=== PATIENT | female | born 1970 | race Caucasian/White ===

== ENCOUNTER → 2016-05-24 | Outpatient (CLI) | payer BC ==
[~2016-05-24] MED LIST: ALPR0.5T PO; AMOX1TAB12 PO; ASCO500T6 PO; ATEN25TA PO; CARI350T27 PO; CLCX200C PO; DOCU-143 PO; HUMERA; HYDR-3729 PO; IBUP-1773 PO; METR500T21 PO; OXYC-202 PO; OXYC-32 PO; POTA20TA8 PO; PRM25T PO; RLS; ROPI0.5T PO; SIME80TA16 PO; TMZP15C PO; VALA1000 PO; [UNRECOGNIZED DRUG - OTHER]
--- OUTSIDE RECORDS SUMMARY | 2016-05-24 13:48 | XMS REPORT | Continuity of Care Document ---
Author Author [facility] Organization [facility] Address Unknown Phone Unavailable Care Team Providers Care Forestry Scientist Name Role Phone Chapin Florentino PCP Unavailable Source Comments Some departments are not documenting in the electronic medical record. If you do not see the information that you expected, contact Release of Information in the Health Information Management department at [phone] for further assistance in locating additional records.[facility] Active Allergies and Adverse Reactions Allergen Noted Date Severity Reactions Comments Codeine 11/10/2010 NAUSEA AND VOMITING Current Medications Prescription Sig. Disp. Refills Start End Date Status Date celecoxib (CELEBREX) 200 Take 1 Cap by mouth twice 60 Cap 3 07/21/19 Active mg PO capsule daily. 11 methotrexate 2.5 mg PO Take 8 Tabs by mouth 8 Tab 3 10/31/19 Active tablet every 7 days. 11 FOLIC ACID PO Take 1 mg by mouth daily. Active FLUoxetine(+) (PROZAC) 10 Take 60 mg by mouth Active mg PO tablet daily. cyclobenzaprine Take 10 mg by mouth at Active (FLEXERIL) 10 mg PO bedtime daily. tablet temazepam (RESTORIL) 7.5 Take 7.5 mg by mouth as Active mg PO capsule Needed. oxyCODONE/acetaminophen Take 2 Tabs by mouth Active (PERCOCET; ENDOCET; three times daily. Max 12 ROXICET) 5/325 mg PO tabs/day tablet cyanocobalamin(+) Take 100 mcg by mouth Active (VITAMIN B-12) 100 mcg PO daily. tablet ZOLPIDEM TARTRATE (AMBIEN Take 10 mg by mouth. Active PO) 1-2x/month Active Problems Not on file Social History Tobacco Use Types Packs/Day Years Used Date Never Assessed Last Filed Vital Signs Vital Sign Reading Time Taken Blood Pressure 119/87 11/02/2009 12:00 AM CDT Pulse 92 11/02/2009 12:00 AM CDT Temperature 36.2 C (97.2 F) 11/02/2009 12:00 AM CDT Respiratory Rate 20 11/02/2009 12:00 AM CDT Height 1.676 m (5' 6") 11/02/2009 12:00 AM CDT Weight 78.019 kg (172 lb) 11/02/2009 12:00 AM CDT Body Mass Index 27.77 11/02/2009 12:00 AM CDT Oxygen Saturation - - Plan of Care Health Maintenance Due Date Last Done Comments Physical (Comprehensive) 10/03/1979 Exam Pertussis Vaccine 10/03/1983 Tetanus Vaccine 1989 Cervical Cancer Screening 1993 Influenza Vaccine 12/01/2015 Results from Last 3 Months Not on file
--- NOTE | 2016-05-24 15:58 | Diagnostic Imaging Report ---
EXAM: Abdomen, flat and upright. INDICATION: Abdominal pain. Supine and erect views were obtained. FINDINGS: There is some gas in both the large and small bowel in a nonspecific fashion. The dilated gas-filled segments of small bowel seen on the CT abdomen/pelvis exam of 12/27/15 have resolved. There is no sign of a bowel obstruction. There does appear to be a moderate amount of fecal material throughout the ascending colon. There is no mass or organomegaly identified. There is no sign of a pneumoperitoneum. The osseous structures are intact. IMPRESSION: 1. The bowel gas pattern is nonspecific. There is no acute abnormality identified. 2. There is a least a moderate amount of fecal material in the ascending colon. Dictated by: Dictated on workstation # [id number]
== END ==
LOC: RAD 13:44
PROVIDERS: ATTEND Nurse Practitioner
DX: R10.13 Epigastric pain (principal); R10.12 Left upper quadrant pain; R11.0 Nausea
CPT/HCPCS: 74020

== ENCOUNTER → 2017-03-26 | Outpatient (CLI) | payer BC ==
--- NOTE | 2017-03-26 13:21 | Diagnostic Imaging Report ---
Bilateral screening mammogram 2D views with tomosynthesis. The current study was also evaluated with a Computer Aided Detection (CAD) system. INDICATION: Screening. No current complaints stated on the questionnaire. COMPARISON: 02/29/16. FINDINGS: The breasts are composed of heterogeneously dense parenchyma which may decrease mammographic sensitivity. There is no mass, architectural distortion or suspicious cluster of calcification. Allowing for technique and positional differences, no suspicious change is seen. IMPRESSION: Dense breasts with no definite change. ACR BI-RADS Category 2: Benign findings. Result letter will be mailed to the patient. Note: At least 10% of breast cancer is not imaged by mammography. Dictated by: Dictated on workstation # [id number]
== END ==
LOC: RAD 09:22
PROVIDERS: ATTEND Nurse Practitioner
DX: Z12.31 Encounter for screening mammogram for malignant neoplasm of breast (principal)
CPT/HCPCS: 77067

== ENCOUNTER → 2017-10-25 | Outpatient (CLI) | payer BC ==
--- NOTE | 2017-10-25 16:49 | Diagnostic Imaging Report ---
Indication: Nodule on the inside of the left calf. Comparison: None. Findings: Targeted ultrasound evaluation at the area of focal patient concern at the level of the medial left calf was performed. There is no sonographically demonstrated mass or fluid collection. Impression: No sonographically demonstrated mass or fluid collection at the area of focal concern labeled at the level of the medial left calf. If there is a truly clinically palpable abnormality, dedicated targeted small field of view MRI with and without contrast would be recommended for further assessment. Dictated by: Dictated on workstation # [id number]
== END ==
LOC: RAD 13:22
PROVIDERS: ATTEND Family Medicine
DX: R22.42 Localized swelling, mass and lump, left lower limb (principal)
CPT/HCPCS: 76881

== ENCOUNTER → 2017-11-08 | Outpatient (CLI) | payer BC ==
--- NOTE | 2017-11-08 10:42 | Diagnostic Imaging Report ---
INDICATION: Palpable knot on the posterior part of the left lower extremity. TIME OF EXAMINATION: 10:10 a.m. FINDINGS: A BB marker was placed in area of palpable abnormality in the posterior aspect of the left lower extremity. No underlying abnormality is seen. No definite soft tissue mass is identified. Tibia and fibula are intact. Alignment at the knee and ankle is normal. No fractures are seen. IMPRESSION: No abnormality is identified. Dictated by: Dictated on workstation # [id number]
== END ==
LOC: RAD 08:58
PROVIDERS: ATTEND Family Medicine
DX: D17.24 Benign lipomatous neoplasm of skin and subcutaneous tissue of left leg (principal)
CPT/HCPCS: 73590

== ENCOUNTER 2017-12-11 15:09 | Outpatient (CLI) | payer BC ==
[~2017-12-11] VITALS: Ht 167.6 cm; Wt 88.5 kg
[~2017-12-11 15:09] MED LIST changes: -OXYC-202 PO; +OXYC1TAB12 PO
[2017-12-11] MEDS ORDERED: METO-387 PO (15:19)
[2017-12-11] MEDS ORDERED: LORC20TA PO (15:19)
[2017-12-11] MEDS ORDERED: HYDR-3820 PO (15:19)
[2017-12-11] MEDS ORDERED: AMIT25TA9 PO (15:19)
[2017-12-11] MEDS ORDERED: TOPI50CA6 PO (15:19)
[2017-12-11] MEDS ORDERED: TRAZ-190 PO (15:22)
== END 2017-12-11 15:20 | disposition home or self-care (01) ==
LOC: PREOP 15:09
PROVIDERS: ATTEND Surgery
DX: Z01.818 Encounter for other preprocedural examination (principal)

== ENCOUNTER 2017-12-16 08:05 | Day surgery (SDC) | payer BC ==
[~2017-12-16] VITALS: Ht 167.6 cm; Wt 88.5 kg
[~2017-12-16 08:05] MED LIST changes: +AMIT25TA9 PO; +HYDR-3820 PO; +LORC20TA PO; +METO-387 PO; +TOPI50CA6 PO; +TRAZ-190 PO
[2017-12-16] MEDS ORDERED: LACTATED RINGERS 1,000 ML IV STA (08:22)
[2017-12-16] MEDS ORDERED: HURRICAINE EXT TUBE (BENZOCAINE) XX ONE (08:30)
[2017-12-16] MEDS ORDERED: LACTATED RINGERS 1,000 ML IV ONE (08:35)
[2017-12-16 08:55] VITALS: BP 116/81
[2017-12-16] MEDS ORDERED: PROPOFOL INJECTION 50 ML IV ONE (09:40)
[2017-12-16] MEDS ORDERED: MIDAZOLAM 2 MG/2 ML (VERSED) VIAL ONE ×2 (09:41)
--- NOTE | 2017-12-16 10:23 | Endo Procedure Record ---
Endo Procedure Report Date of Procedure Last Colonoscopy: No Dec 16, 2017 Surgeon (s) JESUS HOPPER MD Post Procedure/Op Diagnosis EGD: Grade 3 esophagitis. Severe distal gastritis. duodenitis Colonoscopy: Poor bowel prep. Normal mucosa Procedure Performed EGD with antral biopsy. Colonoscopy to cecum Description of Procedure Anesthesia Type: Conscious Sedation Specimen(s) collected/removed antral mucosa for H. pylori Description of the Procedure Indication for the procedures: This 32 came in for an upper endoscopy to evaluate epigastric pain and colonoscopy to investigate change in her bowel habits. Informed consent was obtained after reviewing the procedures in detail. Description of the procedures: She was placed in left lateral decubitus position and her vital signs were monitored. Conscious sedation was achieved using propofol infusion by our REACTOR OPERATOR. EGD/antral biopsy: The flexible gastroscope was then introduced down the esophagus, past the stomach, into the proximal duodenum. Findings: Esophagus: Quite severe(grade III) esophagitis without any stricture Stomach: Severe distal gastritis without ulceration. Biopsy for H. pylori was obtained. Duodenum: Severe duodenitis. She tolerated the procedure well and was turned around in preparation for colonoscopy. Impression: Epigastric pain. Grade 3 esophagitis, severe gastritis and duodenitis. Vital status pending. Colonoscopy: Digital rectal examination unremarkable. The colonoscope was then introduced into the rectum and advanced to the cecum Quality of bowel preparation was rather suboptimal. The scope was withdrawn slowly and the mucosa examined in a systematic fashion, suctioning the fecal material. There was no abnormality She tolerated the procedure well and was taken back to the nursing area in a stable condition. Impression: Change in bowel habits. Normal colonoscopy. Copy Copies To 1: ISABEL LIMON XAVIER M MD Dec 16, 2017 10:23
--- NOTE | 2017-12-16 10:25 | Discharge Inst-Simple/Standard ---
Discharge Inst-Standard Discharge Medications New, Converted or Re-Newed RX: Other Patient Instructions/Follow Up Plan of Care/Instructions/FU: my office will schedule a radiology study and contact her Activity as Tolerated: Yes Discharge Diet: No Restrictions JESUS HOPPER MD Dec 16, 2017 10:25
[2017-12-16 10:50] VITALS: BP 108/71
[2017-12-16 11:20] VITALS: BP 114/84
[2017-12-16 11:42] VITALS: BP 114/84
--- NOTE | 2017-12-16 14:07 | Anesthesia-General Post-Op ---
MAC Patient Condition Mental Status/LOC: Same as Preop Cardiovascular: Satisfactory Nausea/Vomiting: Absent Respiratory: Satisfactory Pain: Controlled Complications: Absent Post Op Complications Complications None Follow Up Care/Instructions Patient Instructions None needed. Anesthesiology Discharge Order Discharge Order Patient is doing well, no complaints, stable vital signs, no apparent adverse anesthesia problems. No complications reported per nursing. SHAUN TARIQ CRNA Dec 16, 2017 14:07
== END 2017-12-16 11:42 | disposition home or self-care (01) ==
LOC: ENDO 08:05
PROVIDERS: ATTEND Surgery
DX: K20.9 Esophagitis, unspecified (principal); K29.70 Gastritis, unspecified, without bleeding; K29.80 Duodenitis without bleeding; R19.4 Change in bowel habit; M45.9 Ankylosing spondylitis of unspecified sites in spine; I10 Essential (primary) hypertension; F32.9 Major depressive disorder, single episode, unspecified; F41.9 Anxiety disorder, unspecified; K21.9 Gastro-esophageal reflux disease without esophagitis; Z79.899 Other long term (current) drug therapy

== ENCOUNTER → 2018-01-06 | Outpatient (CLI) | payer BC ==
--- NOTE | 2018-01-10 12:59 | Diagnostic Imaging Report ---
Motility study with markers. Indication: Chronic constipation. There are no prior studies available for comparison. Six images were obtained from the initial administration of the Sitz markers motility coils on 01/06/2018 until today's exam performed at 10:07 AM. There are multiple Sitz markers overlying the descending colon on the final image. There also appears to a fair amount of fecal material throughout the colon on all of the images. There is no mass or organomegaly identified. The osseous structures are intact. Impression: After 4 days there are still Sitz markers overlying the descending colon. Dictated by: Dictated on workstation # [id number]
== END ==
LOC: RAD 09:09
PROVIDERS: ATTEND Surgery
DX: K59.01 Slow transit constipation (principal)
CPT/HCPCS: 74250

== ENCOUNTER → 2018-04-02 | Outpatient (CLI) | payer BC ==
[~2018-04-02] MED LIST changes: +METR-197 PO; -METR500T21 PO
--- NOTE | 2018-04-02 18:20 | Diagnostic Imaging Report ---
EXAMINATION: Digital mammogram Bilateral screening. INDICATION: Screening. COMPARISON: This study was compared to the prior exams of 03/26/2017, 02/29/2016, and 02/11/2015. At this time, there are no current complaints. The current study was also evaluated with a Computer Aided Detection (CAD) system. FINDINGS: The fibroglandular tissue in both breasts is heterogeneously dense. This does limit the sensitivity of this exam. Overall, there does not appear to have been any significant change when compared to the prior study. No primary or secondary sign of malignancy is noted. IMPRESSION: There is no radiographic evidence for malignancy. ACR BI-RADS Category 1: Negative. Result letter will be mailed to the patient. Note: At least 10% of breast cancer is not imaged by mammography. Dictated by: Dictated on workstation # [id number]
== END ==
LOC: RAD 14:45
PROVIDERS: ATTEND Family Medicine
DX: Z12.31 Encounter for screening mammogram for malignant neoplasm of breast (principal)
CPT/HCPCS: 77067

== ENCOUNTER 2020-04-01 10:20 | Outpatient (CLI) | payer BC ==
[~2020-04-01] VITALS: Ht 165.1 cm; Wt 77.1 kg
[2020-04-01 10:18] VITALS: BP 121/86
[~2020-04-01 10:20] MED LIST changes: +ACHYD1T PO; +ASCO500T17 PO; -ASCO500T6 PO; -HYDR-3820 PO; -METO-387 PO; +METR-145 PO; -METR-197 PO; +MTP25TSR PO; -TRAZ-190 PO; +TRAZ-227 PO; -VALA1000 PO; +VALA10007 PO
[2020-04-01] MEDS ORDERED: BAMLANIVIMAB 700 MG in NS 200 ML IV ONE (10:30)
[2020-04-01] MEDS ORDERED: diphenhydrAMINE 50 MG/ML INJ (BENADRYL) IV PRN (10:30)
[2020-04-01] MEDS ORDERED: EPINEPHrine INJECTION 1 MG/ML AMP IM PRN (10:30)
[2020-04-01 11:57] VITALS: BP 105/71
== END 2020-04-01 12:53 | disposition home or self-care (01) ==
LOC: INFUSION 10:20
PROVIDERS: ATTEND Family Medicine
DX: U07.1 COVID-19 (principal)

== ENCOUNTER 2020-10-26 13:00 | Outpatient (RCR) | payer BC | END 2020-11-01 | disposition home or self-care (01) | PROVIDERS: ATTEND Orthopaedic Surgery Hand Surgery | DX: M79.645 Pain in left finger(s) (principal) ==

== ENCOUNTER → 2021-01-16 | Outpatient (CLI) | payer BC ==
--- NOTE | 2021-01-16 08:59 | Diagnostic Imaging Report ---
INDICATION: Abdominal pain Ultrasound of the gallbladder and right upper quadrant performed in the routine fashion. The liver shows normal echogenicity with no focal lesion. There is patency of the portal vein with hepatopetal flow. Gallbladder is unremarkable. No stones or wall thickening. Common duct measured 6 mm. The pancreas is not well seen due to overlying gas. Visualized portions of aorta and IVC are unremarkable. Right kidney was normal 11.5 cm in length. There is no ascites. There is a clinically palpated lump in the right upper quadrant. Ultrasound in the area in question shows no definitive mass or abnormal fluid collection in this area. IMPRESSION: Unremarkable ultrasound of the gallbladder and right upper quadrant. Findings are unchanged from 11/25/2017. Dictated by: Dictated on workstation # [id number]
--- NOTE | 2021-01-16 09:14 | Diagnostic Imaging Report ---
HISTORY: Chronic back pain. COMPARISON: 12/05/2010. TECHNIQUE: Three views of the lumbar spine. FINDINGS: There are diminutive 12th ribs with transitional anatomy at the lumbosacral junction and sacralization of L5. There is mild left convex curvature of the lumbar spine centered at L2 which appears similar to the prior exam. Vertebral body heights are preserved. There are moderate degenerative changes at L3-L4 and L4-L5. There are mild degenerative changes elsewhere in the lumbar spine. There is no spondylolisthesis. No fracture is seen. Bilateral sacroiliac joints appear patent. IMPRESSION: 1. Degenerative changes in the lower lumbar spine with no acute fracture seen. 2. Transitional anatomy at the lumbosacral junction. Dictated by: Dictated on workstation # [id number]
== END ==
LOC: RAD 07:57
PROVIDERS: ATTEND Family Medicine
DX: M47.816 Spondylosis without myelopathy or radiculopathy, lumbar region (principal); R10.11 Right upper quadrant pain
CPT/HCPCS: 72100; 76705

== ENCOUNTER 2021-02-02 13:00 | Outpatient (RCR) | payer BC | END 2021-02-06 | disposition home or self-care (01) | PROVIDERS: ATTEND Orthopaedic Surgery Hand Surgery | DX: Z48.89 Encounter for other specified surgical aftercare (principal); M20.022 Boutonniere deformity of left finger(s) ==

== ENCOUNTER → 2021-02-06 | Outpatient (CLI) | payer BC ==
[~2021-02-06] MED LIST changes: +CATHETER FLUSH 10 ML SYR IV PRN
--- NOTE | 2021-02-06 11:02 | Diagnostic Imaging Report ---
INDICATION: RIGHT UPPER QUADRANT ABDOMINAL PAIN. FINDINGS: The patient was administered 5.5 mCi of Tc 99m Choletec and sequential imaging was performed over the right upper abdomen. There is progressive, homogeneous accumulation of radiotracer within the liver parenchyma. There is filling of the bile ducts and subsequent filling of the gallbladder. There is progressive clearance of activity from the liver parenchyma and accumulation of radiotracer within loops of small bowel. The patient was then administered a fatty meal, utilizing 2 cans of Ensure. The gallbladder ejection fraction was calculated to be 36.8%. (Normal values post fatty meal stimulation are 33% or greater.) IMPRESSION: 1. Hepatobiliary scan demonstrates a patent biliary tree. 2. Lower limits of normal gallbladder ejection fraction of approximately 37%. Dictated by: Dictated on workstation # [id number]
== END ==
LOC: CARD 10:00
PROVIDERS: ATTEND Family Medicine
DX: R10.11 Right upper quadrant pain (principal)
CPT/HCPCS: 78227; A9537

== ENCOUNTER 2021-02-09 13:00 | Outpatient (RCR) | payer BC ==
[~2021-02-09 13:00] MED LIST changes: -CATHETER FLUSH 10 ML SYR IV PRN; +POTA-169 PO; -POTA20TA8 PO
[2021-02-28] MEDS ORDERED: IXEK80AU SQ (11:06)
[2021-02-28] MEDS ORDERED: METH2.5T PO (11:06)
[2021-02-28] MEDS ORDERED: FLUT1AER IH (11:06)
[2021-02-28] MEDS ORDERED: POTA10CA43 PO (11:06)
[2021-02-28] MEDS ORDERED: BUSP5TAB59 PO (11:06)
[2021-02-28] MEDS ORDERED: FOLI1TAB33 PO (11:06)
[2021-02-28] MEDS ORDERED: CELE200C PO (11:06)
[2021-02-28] MEDS ORDERED: SUMATRIPTAN (11:06)
[2021-02-28] MEDS ORDERED: METO50TA7 PO (11:06)
[2021-03-02] MEDS ORDERED: OXYC1TAB16 PO (09:22)
== END 2021-03-21 12:15 | disposition home or self-care (01) ==
PROVIDERS: ATTEND Orthopaedic Surgery Hand Surgery
DX: Z42.8 Encounter for other plastic and reconstructive surgery following medical procedure or healed injury (principal); M20.022 Boutonniere deformity of left finger(s)

== ENCOUNTER 2021-02-27 05:35 | Outpatient (CLI) | payer BC ==
[~2021-02-27] VITALS: Ht 165.1 cm; Wt 87.5 kg
[2021-02-28] MEDS ORDERED: POTA10CA43 PO (11:06)
[2021-02-28] MEDS ORDERED: IXEK80AU SQ (11:06)
[2021-02-28] MEDS ORDERED: FOLI1TAB33 PO (11:06)
[2021-02-28] MEDS ORDERED: CELE200C PO (11:06)
[2021-02-28] MEDS ORDERED: SUMATRIPTAN (11:06)
[2021-02-28] MEDS ORDERED: BUSP5TAB59 PO (11:06)
[2021-02-28] MEDS ORDERED: METO50TA7 PO (11:06)
[2021-02-28] MEDS ORDERED: METH2.5T PO (11:06)
[2021-02-28] MEDS ORDERED: FLUT1AER IH (11:06)
== END 2021-02-28 11:07 | disposition home or self-care (01) ==
LOC: PREOP 05:35
PROVIDERS: ATTEND Surgery
DX: Z01.818 Encounter for other preprocedural examination (principal)

== ENCOUNTER 2021-03-02 08:07 | Day surgery (SDC) | payer BC ==
[2021-03-02] VITALS (12 sets, daily range): BP systolic 111–133; BP diastolic 70–95
[~2021-03-02] VITALS: Ht 165.1 cm; Wt 87.5 kg
[~2021-03-02 08:07] MED LIST changes: +BUSP5TAB59 PO; +CELE200C PO; +FLUT1AER IH; +FOLI1TAB33 PO; +IXEK80AU SQ; +METH2.5T PO; +METO50TA7 PO; +POTA10CA43 PO; +SUMATRIPTAN
[2021-03-02] MEDS ORDERED: LIDOCAINE/EPI 1%-1:200,000 (XYLOCAINE) 30 ML VIAL ONE (08:15)
[2021-03-02] MEDS ORDERED: ceFAZolin 2 GM IV Premixed 50 ML IV ONE (08:30)
[2021-03-02] MEDS: LACTATED RINGERS 1,000 ML IV PRN ×2 (08:48→11:11)
--- NOTE | 2021-03-02 09:19 | Progress Note-Pre Operative ---
Pre-Operative Progress Note H&P Reviewed The H&P was reviewed, patient examined and no changes noted. Date Seen by Provider: Mar 02, 2021 Time Seen by Provider: 09:15 Date H&P Reviewed: Mar 02, 2021 Time H&P Reviewed: 09:10 Pre-Operative Diagnosis: Biliary Dyskinesia GAMALIEL LEYVA APRN Mar 02, 2021 09:19
[2021-03-02] MEDS ORDERED: OXYC1TAB16 PO (09:22)
--- NOTE | 2021-03-02 09:22 | Discharge Inst-Surgical ---
D/C Lap Instructions-KIDO Reconcile Patient Problems Problems Reviewed?: Yes New, Converted, or Re-Newed RX: RX on Chart Follow Up Appt in 2 weeks Activity as tolerated No driving for 24 hours No driving while on pain medications Incentive Spirometry use every 2 hours while awake Regular Diet Symptoms to Report: Fever over 101 degree F, Nausea/Vomiting Infection Signs and Symptoms to report: Increased redness, Foul odor of wound, Increased drainage Bathing instructions: May shower Operative Area Clean/Dry; Keep incision clean/dry If any problems/questions: Contact your physician or go to Emergency Room GMAALIEL LEYVA APRN Mar 02, 2021 09:22
[2021-03-02] MEDS ORDERED: oxyCODONE/APAP 5/325MG (PERCOCET 5) TABLET PO PRN (09:30)
[2021-03-02] MEDS ORDERED: fentaNYL INJ 100 MCG/2 ML AMP IVP PRN (09:30)
[2021-03-02] MEDS ORDERED: ACETAMINOPHEN 325 MG TABLET PO PRN (09:30)
[2021-03-02] MEDS ORDERED: ONDANSETRON 4 MG/2 ML (SDV) Z0FRAN IVP PRN ×2 (09:30→12:00)
[2021-03-02] MEDS ORDERED: proPOfol 200 MG/20 ML (DIPRIVAN) VIAL IV ONE (09:40)
[2021-03-02] MEDS ORDERED: fentaNYL INJ 100 MCG/2 ML AMP ONE ×2 (09:40→11:28)
[2021-03-02] MEDS ORDERED: LIDOCAINE PF 2% 5 ML (XYLOCAINE) VIAL ONE (09:40)
[2021-03-02] MEDS ORDERED: ROCURONIUM 50 MG/5 ML (ZEMURON) VIAL IV ONE (09:40)
[2021-03-02] MEDS ORDERED: MIDAZOLAM 2 MG/2 ML (VERSED) VIAL ONE (09:40)
[2021-03-02] MEDS ORDERED: ONDANSETRON 4 MG/2 ML (SDV) Z0FRAN ONE (09:40)
[2021-03-02] MEDS ORDERED: SEVOFLURANE (ULTANE) 15 ML INHAL SOLN ONE ×2 (09:40→11:15)
[2021-03-02] MEDS ORDERED: NEOSTIGMINE 3 MG/3 ML VIAL ONE (10:51)
[2021-03-02] MEDS ORDERED: GLYCOPYRROLATE 0.2 MG/ML (ROBINUL) 2 ML VIAL ONE (10:51)
--- NOTE | 2021-03-02 11:28 | Progress Note-Post Operative ---
Post-Operative Progess Note Surgeon (s)/Strand Forming Machine Operator (s) Surgeon ATTILA NEWMAN MD Strand Forming Machine Operator: dennis portillo DIVISION CONTROLLER Pre-Operative Diagnosis Biliary Dyskinesia, sx abdominal wall lipoma 3cm Post-Operative Diagnosis same Procedure & Operative Findings Date of Procedure 03/02/21 Procedure Performed/Findings laparoscopic cholecystectomy, excision subcutaneous abd wall lipoma(3cm) Anesthesia Type get Estimated Blood Loss Estimated blood loss (mL): minimal Specimens/Packing Specimens Removed gallbladder, subcutaneous lipoma abd wall(3cm) ATTILA NEWMAN MD Mar 02, 2021 11:28
[2021-03-02] MEDS ORDERED: HYDROmorphone 2 MG/ML VIAL (DILAUDID) ONE (11:56)
--- NOTE | 2021-03-02 11:58 | Anesthesia-General Post-Op ---
General Patient Condition Mental Status/LOC: Same as Preop Cardiovascular: Satisfactory Nausea/Vomiting: Absent Respiratory: Satisfactory Pain: Controlled Complications: Absent Post Op Complications Complications None Follow Up Care/Instructions Patient Instructions None needed. Anesthesia/Patient Condition Patient Condition Patient is doing well, no complaints, stable vital signs, no apparent adverse anesthesia problems. No complications reported per nursing. ROBYN BROWN CRNA Mar 02, 2021 11:57
[2021-03-02] MEDS ORDERED: HYDROmorphone 2 MG/ML VIAL (DILAUDID) IV ONE (12:00)
[2021-03-02] MEDS ORDERED: fentaNYL INJ 100 MCG/2 ML AMP IVP ONE (12:00)
--- NOTE | 2021-03-02 14:16 | OPERATIVE REPORT ---
DATE OF SERVICE: 03/02/2021 ATTENDING PRIMARY CARE PHYSICIAN: Claritza Mojica DO PREOPERATIVE DIAGNOSES: Symptomatic biliary dyskinesia, symptomatic right upper abdominal quadrant abdominal wall lipoma, 3 cm in size. POSTOPERATIVE DIAGNOSES: Symptomatic biliary dyskinesia, symptomatic right upper abdominal quadrant abdominal wall lipoma, 3 cm in size. PROCEDURE: Laparoscopic cholecystectomy, excision of abdominal wall lipoma in the subcutaneous tissue 3 cm in size. SURGEON: Attila Newman MD HUMIDIFIER MAINTENANCE WORKER: Faizan Sharpe APRN ANESTHESIA: General endotracheal. ESTIMATED BLOOD LOSS: Minimal. FINDINGS: Same as postoperative diagnoses. DISPOSITION: The patient tolerated the procedure well. INDICATIONS: The patient is a 50-year-old female, who has had issues with abdominal bloating and nausea following meals. She states that this has been going on for greater than 1 year and was initially mild; however, has become progressively worse over time. She also reports that she does have pain in the right upper abdominal quadrant; however, she also does have a palpable lump in the right upper abdominal quadrant and the subcutaneous tissue, likely consistent with a symptomatic lipoma approximately 3 cm in size. She underwent an ultrasound, which did not show any gallstones; however, she underwent a HIDA scan, which showed an ejection fraction of 37% and upon administration of the Kinevac analogue, she did have reproduction of symptoms with nausea and abdominal bloating. DESCRIPTION OF PROCEDURE: The patient was brought to the operating room, laid supine on the table. After adequate IV pain and sedative medications and general endotracheal intubation, the abdomen was prepped and draped in standard surgical fashion. A 0.5% Marcaine with epinephrine was then used to anesthetize the overlying skin in the left upper abdominal quadrant and a transverse skin incision made using a 15 blade. An 0 silk suture was applied to the medial aspect incision for retraction and a Veress needle inserted with a low opening pressure of 0 mmHg. The abdomen was then insufflated to 15 mmHg pressure. The Veress needle removed and a 5 mm XL trocar placed followed by a 5 mm 45-degree angle laparoscope visualizing the peritoneal cavity. A 4-quadrant abdominal exploration was performed. There was a distended gallbladder with omental adhesions towards the fundus of the gallbladder. Under direct visualization, we then proceeded to place a supraumbilical 10 mm port after the skin and peritoneal lining were anesthetized using 0.5% Marcaine with epinephrine and a transverse skin incision made using 15 blade. In a similar fashion, two right upper abdominal quadrant 5 mm ports were placed. The patient was then placed in a reverse Trendelenburg position as well as plane right side up, left side down. The fundus of the gallbladder was then retracted anteriorly and superiorly. The hepatoduodenal ligament was then dissected using blunt dissection as well as electrocautery on the hook instrument as well as a [place] dissector. The entire critical view of safety was identified including the triangle of Calot as well as the cystic duct and artery as only two structures going into the gallbladder as well as the cystic plate behind the proximal gallbladder. A timeout was then taken and the cystic duct and artery were then clipped proximally, distally and cut with EndoShears. The gallbladder was then dissected off the liver bed using cautery on hook instrument with visualization of good hemostasis as well as no leaking ducts of Luschka. The gallbladder was removed through the 10 mm port site using an EndoCatch bag. The 10 mm port site fascia and peritoneum were then closed under direct visualization using a Cisco-Arianna device and 0 Vicryl suture. The abdomen was desufflated and the remaining ports removed. The lipoma was then excised by extending the right upper abdominal quadrant incision laterally after the skin and peritoneal lining were anesthetized using 0.5% Marcaine with epinephrine and a transverse skin incision made using a 15 blade. The lipoma was identified and appeared to be a benign subcutaneous lesion. The lesion was fully excised using electrocautery and blunt dissection with visualization of good hemostasis. The lesion was approximately 3 cm in size. All skin incisions were then closed using 4-0 Monocryl running subcuticular sutures. Wounds were then cleaned and covered with Dermabond. The patient tolerated the procedure well. We will start IV normal pain medication as well as a clear liquid diet. When she is tolerating clears, has good pain control with oral pain medications, ambulating well, we will discharge her home and she will be instructed to do no heavy lifting or exertion for the next two weeks. Job ID: [id number] DocumentID: [id number] Dictated Date: 03/02/2021 11:43:43 Coding Educator Date: 03/02/2021 14:16:11 Dictated By: ATTILA NEWMAN MD
== END 2021-03-02 14:06 | disposition home or self-care (01) ==
LOC: SDC 08:07
PROVIDERS: ATTEND Surgery
DX: K81.1 Chronic cholecystitis (principal); K82.8 Other specified diseases of gallbladder; D17.1 Benign lipomatous neoplasm of skin and subcutaneous tissue of trunk; I10 Essential (primary) hypertension; J45.909 Unspecified asthma, uncomplicated; F32.A Depression, unspecified; F41.9 Anxiety disorder, unspecified; M54.50 Low back pain, unspecified; G89.29 Other chronic pain; E07.9 Disorder of thyroid, unspecified; Z79.891 Long term (current) use of opiate analgesic; Z79.899 Other long term (current) drug therapy; Z88.5 Allergy status to narcotic agent
CPT/HCPCS: 87081

== ENCOUNTER → 2022-03-21 | Outpatient (CLI) | payer BC ==
[~2022-03-21] MED LIST changes: +OXYC1TAB16 PO
--- NOTE | 2022-03-21 12:53 | Diagnostic Imaging Report ---
INDICATION: Wheezing and dyspnea. PA and lateral chest obtained at 10:18 a.m. FINDINGS: Heart and mediastinal silhouette are normal in appearance. Lungs are clear. There is no pneumothorax or pleural fluid. There is dextroscoliotic change. IMPRESSION: No acute process the chest. Dictated by: Dictated on workstation # [id number]
== END ==
LOC: RAD 09:53
PROVIDERS: ATTEND Nurse Practitioner Family
DX: J06.9 Acute upper respiratory infection, unspecified (principal)
CPT/HCPCS: 71046

== ENCOUNTER → 2022-03-29 | Outpatient (CLI) | payer BC ==
--- NOTE | 2022-03-30 10:48 | Diagnostic Imaging Report ---
Indication: Routine screening. Comparison is made with prior mammograms from 04/02/2018 and 03/26/2017. 2-D and 3-D bilateral screening mammography was performed with CAD. Both breasts are heterogeneously dense, limiting the sensitivity of mammography. The overall parenchymal pattern appears stable. No dominant mass or malignant-appearing microcalcifications are identified. There are benign calcifications bilaterally. Axillae are unremarkable. IMPRESSION: BI-RADS Category 2 No mammographic features suspicious for malignancy are identified. ACR BI-RADS Category 2: Benign findings. Result letter will be mailed to the patient. Note: At least 10% of breast cancer is not imaged by mammography. Dictated by: Dictated on workstation # [id number]
== END ==
LOC: RAD 15:15
PROVIDERS: ATTEND Family Medicine
DX: Z12.31 Encounter for screening mammogram for malignant neoplasm of breast (principal)
CPT/HCPCS: 77063; 77067

== ENCOUNTER 2022-05-24 10:40 | Emergency (ER) | payer BC ==
[~2022-05-24] VITALS: Ht 165 cm; Wt 84.0 kg
[~2022-05-24 10:40] MED LIST changes: -POTA10CA43 PO; +POTA10CA44 PO
--- NOTE | 2022-05-24 10:55 | ED Chest Pain ---
General Chief Complaint: Chest Pain Stated Complaint: HIGH BLOOD PRESSURE | CHEST PAIN | JAW PAIN History of Present Illness Date Seen by Provider: May 24, 2022 Time Seen by Provider: 10:45 Initial Comments 51-year-old female presents with epigastric/substernal pain that started just prior to arrival. She reports that she was waiting to going to physical therapy when she had her episode. That she had a little bit of pain up into her left jaw. No nausea vomiting diaphoresis or shortness of breath. She reports that the pain is subsided but still has some mild discomfort. Reports she has had 1 previous episode that went away on its own. She was concerned because they took her blood pressure twice and was 150/100. Allergies and Home Medications Allergies Coded Allergies: codeine (Verified Adverse Reaction, Unknown, NAUSEA, 03/02/21) zinc (Verified Adverse Reaction, Unknown, NAUSEA, 03/02/21) Patient Home Medication List Home Medication List Reviewed: Yes Buspirone HCl (Buspirone HCl) 5 Mg Tablet, 10 MG PO DAILY PRN, (Reported) Entered as Reported by: WENDY CAMARGO on 02/28/21 110 Celecoxib (Celebrex) 200 Mg Capsule, 200 MG PO DAILY, (Reported) Entered as Reported by: WENDY CAMARGO on 02/28/21 110 Fluticasone/Vilanterol (Breo Ellipta 100-25 Mcg INH) 1 Each Blst.w.dev, 1 EACH IH DAILY, (Reported) Entered as Reported by: WENDY CAMARGO on 02/28/21 110 Folic Acid (Folic Acid) 1 Mg Tablet, 1 MG PO DAILY, (Reported) Entered as Reported by: WENDY CAMARGO on 02/28/21 110 Hydrocodone Bit/Acetaminophen (HYDROcodone/APAP 10/325 TABLET) 1 Each Tablet, 1 EACH PO Q4H PRN for PAIN-MODERATE, (Reported) Entered as Reported by: DOMENICA THOMAS on 12/11/17 1519 Ixekizumab (Taltz Autoinjector) 80 Mg/1 Ml Auto.injct, 2 EA SQ UD, (Reported) Entered as Reported by: WENDY CAMARGO on 02/28/21 1106 Methotrexate Sodium (Methotrexate) 2.5 Mg Tablet, 8 EA PO WEEK, (Reported) Entered as Reported by: WENDY CAMARGO on 02/28/21 1106 Metoprolol Succinate (Metoprolol Succinate) 50 Mg Tab.er.24h, 100 MG PO DAILY, (Reported) Entered as Reported by: WENDY CAMARGO on 02/28/21 110 Oxycodone HCl/Acetaminophen (Percocet 7.5-325 mg Tablet) 1 Each Tablet, 1 TAB PO Q4H PRN for PAIN-MODERATE Prescribed by: GAMALIEL LEYVA on 03/02/21 0922 Potassium Chloride (Potassium Chloride) 10 Meq Capsule.er, 10 MEQ PO DAILY, (Reported) Entered as Reported by: WENDY CAMARGO on 02/28/21 110 Trazodone HCl (Trazodone HCl) 100 Mg Tablet, 100 MG PO HS, (Reported) Entered as Reported by: DOMENICA THOMAS on 12/11/17 1522 [Sumatriptan] , UD, (Reported) Entered as Reported by: WENDY CAMARGO on 02/28/21 110 Review of Systems Review of Systems Constitutional: No chills, No fever Respiratory: Denies Cough, Denies Shortness of Air, Denies SOA With Exertion Cardiovascular: Chest Pain; Denies Irregular Heart Rate, Denies Lightheadedness, Denies Palpitations Gastrointestinal: Denies Abdominal Pain, Denies Nausea, Denies Vomiting Genitourinary: No Symptoms Reported Musculoskeletal: see HPI Skin: no symptoms reported Psychiatric/Neurological: No Symptoms Reported Endocrine: No Symptoms Reported Past Cymzmdt-Atzvsd-Uyxcod Hx Seasonal Allergies Seasonal Allergies: No Past Medical History Surgeries: Yes (2 RECONTRUCTIONS LEFT MIDDLE FEB 29 2020, AND JULY 04 2020) Hysterectomy, Tonsillectomy Respiratory: No Asthma Currently Using CPAP: No Currently Using BIPAP: No Cardiac: Yes Hypertension Neurological: Yes Headaches /Migraines Reproductive Disorders: No Female Reproductive Disorders: Ovarian 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 Genitourinary: No Gastrointestinal: Yes Gastroesophageal Reflux, Chronic Constipation Musculoskeletal: Yes Arthritis, Scoliosis, Chronic Back Pain Endocrine: Yes Hypothyroidsim HEENT: No Cancer: No Psychosocial: Yes Anxiety, Depression Integumentary: Yes Psoriasis Blood Disorders: No Family Medical History Arthritis 19 MOTHER Cardiovascular disease 19 FATHER 19 MOTHER Completed stroke 19 FATHER 19 MOTHER Hypertension 19 FATHER 19 MOTHER G8 BROTHER Myocardial infarction 19 FATHER Seizure disorder 19 FATHER Physical Exam Vital Signs Vital Signs - First Documented 05/24/22 10:53 Temp 36.1 Pulse 77 Resp 18 B/P (MAP) 131/93 (106) Pulse Ox 100 O2 Delivery Room Air Capillary Refill : Height, Weight, BMI Height: 5'6.00" Weight: 195lbs. 0.0oz. 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 Norm as Tested Skin: Normal Color, Warm/Dry Progress/Results/Core Measures Results/Orders Lab Results Laboratory Tests Test 05/24/22 10:50 05/24/22 12:50 Range/Units White Blood Count 7.1 4.3-11.0 10^3/uL Red Blood Count 4.01 3.80-5.11 10^6/uL Hemoglobin 12.9 11.5-16.0 g/dL Hematocrit 37 35-52 % Mean Corpuscular Volume 93 80-99 fL Mean Corpuscular Hemoglobin 32 25-34 pg Mean Corpuscular Hemoglobin Concent 35 32-36 g/dL Red Cell Distribution Width 11.9 10.0-14.5 % Platelet Count 390 130-400 10^3/uL Mean Platelet Volume 9.0 9.0-12.2 fL Immature Granulocyte % (Auto) 1 % Neutrophils (%) (Auto) 53 42-75 % Lymphocytes (%) (Auto) 37 12-44 % Monocytes (%) (Auto) 8 0-12 % Eosinophils (%) (Auto) 1 0-10 % Basophils (%) (Auto) 1 0-10 % Neutrophils # (Auto) 3.8 1.8-7.8 10^3/uL Lymphocytes # (Auto) 2.6 1.0-4.0 10^3/uL Monocytes # (Auto) 0.6 0.0-1.0 10^3/uL Eosinophils # (Auto) 0.1 0.0-0.3 10^3/uL Basophils # (Auto) 0.1 0.0-0.1 10^3/uL Immature Granulocyte # (Auto) 0.0 0.0-0.1 10^3/uL Prothrombin Time 12.5 12.2-14.7 SEC INR Comment 0.9 0.8-1.4 Activated Partial Thromboplast Time 31 24-35 SEC Sodium Level 139 135-145 MMOL/L Potassium Level 3.9 3.6-5.0 MMOL/L Chloride Level 103 98-107 MMOL/L Carbon Dioxide Level 26 21-32 MMOL/L Anion Gap 10 5-14 MMOL/L Blood Urea Nitrogen 12 7-18 MG/DL Creatinine 0.75 0.60-1.30 MG/DL Estimat Glomerular Filtration Rate 98 BUN/Creatinine Ratio 16 Glucose Level 118 H 70-105 MG/DL Calcium Level 8.7 8.5-10.1 MG/DL Corrected Calcium 8.6 8.5-10.1 MG/DL Magnesium Level 1.8 1.6-2.4 MG/DL Total Bilirubin 0.5 0.1-1.0 MG/DL Aspartate Amino Transf (AST/SGOT) 22 5-34 U/L Alanine Aminotransferase (ALT/SGPT) 34 0-55 U/L Alkaline Phosphatase 54 40-136 U/L Myoglobin 46.0 10.0-92.0 NG/ML Troponin I < 0.028 < 0.028 <0.028 NG/ML Total Protein 6.6 6.4-8.2 GM/DL Albumin 4.1 3.2-4.5 GM/DL Lipase 8 8-78 U/L My Orders Orders - RUBY,DOMINGO L DO Ekg Tracing (05/24/22 10:42) Cbc With Automated Diff (05/24/22 10:57) Magnesium (05/24/22 10:57) Chest 1 View, Ap/Pa Only (05/24/22 10:57) Ekg Tracing (05/24/22 10:57) Comprehensive Metabolic Panel (05/24/22 10:57) Myoglobin Serum (05/24/22 10:57) Protime With Inr (05/24/22 10:57) Partial Thromboplastin Time (05/24/22 10:57) Monitor-Rhythm Ecg Trace Only (05/24/22 10:57) Lipid Panel (05/25/22 06:00) Ed Iv/Invasive Line Start (05/24/22 10:57) Troponin I Linda (05/24/22 10:57) Aspirin Chewable Tablet (Baby Aspirin Ch (05/24/22 11:00) Lipase (05/24/22 10:57) Famotidine Injection (Pepcid Injection) (05/24/22 10:57) Troponin I Linda (05/24/22 12:38) Ekg Tracing (05/24/22 12:40) Medications Given in ED Current Medications Medications Dose Ordered Sig/Milo Route Start Time Stop Time Status Last Admin Dose Admin Aspirin 324 mg ONCE ONCE PO 05/24/22 11:00 05/24/22 11:01 DC 05/24/22 11:05 324 MG Vital Signs/I&O 05/24/22 10:53 Temp 36.1 Pulse 77 Resp 18 B/P (MAP) 131/93 (106) Pulse Ox 100 O2 Delivery Room Air Progress Progress Note : Progress Note Patient labs were reviewed. She had negative labs with 2 negative troponins. Patient had 2 negative EKGs with no acute changes or ST elevation. Patient's symptoms resolved following the Pepcid. I did discuss with patient admission for observation and stress test versus outpatient stress test. Patient is low risk and would prefer to follow-up with her primary care provider and discuss possible stress with her primary care provider and possible cardiology. Patient will return to the ER with any concerns. I did review discussed return precautions. Patient stable and discharged home Initial ECG Impression Date: May 24, 2022 Initial ECG Impression Time: 10:49 Initial ECG Rate: 67 Initial ECG Rhythm: Normal Sinus Initial ECG Impression: Nonspecific Changes Comment no acute st elevation or changes EKG : EKG Time: 12:46 Rhythm: Normal Sinus Intervals: Normal ECG Impression: Normal Diagnostic Imaging Diagonstic Imaging: Xray Plain Films/CT/US/NM/MRI: chest Comments Date of Exam:05/24/22 CHEST 1 VIEW, AP/PA ONLY EXAM: CHEST 1 VIEW, AP/PA ONLY INDICATION: Chest pain. COMPARISON: 03/21/2022. FINDINGS: Normal heart size and central pulmonary vascularity. Lungs are clear. No pleural effusion or pneumothorax. No acute osseous findings. IMPRESSION: Negative chest. Reviewed: Reviewed by Me, Reviewed/Discussed Departure Impression Primary Impression: Chest pain Qualified Codes: R07.9 - Chest pain, unspecified Additional Impression: Epigastric pain Disposition: HOME, SELF-CARE Condition: Stable Departure-Patient Inst. 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 Discharge Instructions: Please follow-up with your primary care provider and discuss an outpatient stress test in the next couple days. Return to the ER with any concerns. All discharge instructions reviewed with patient and/or family. Voiced understanding. DOMINGO RUBY DO May 24, 2022 10:55
[2022-05-24] MEDS ORDERED: FAMOTIDINE 20MG/2ML IV (PEPCID) IV STA (10:57)
[2022-05-24] MEDS ORDERED: ASPIRIN 81 MG CHEW (CHILDREN'S ASA) PO ONE (11:00)
[2022-05-24 11:03] LABS: BASOPHILS # (AUTO) 0.1 10^3/uL (0.0-0.1); BASOPHILS % (AUTO) 1 % (0-10); EOSINOPHILS # (AUTO) 0.1 10^3/uL (0.0-0.3); EOSINOPHILS % (AUTO) 1 % (0-10); HEMATOCRIT 37 % (35-52); HEMOGLOBIN 12.9 g/dL (11.5-16.0); LYMPHOCYTES # (AUTO) 2.6 10^3/uL (1.0-4.0); LYMPHOCYTES % (AUTO) 37 % (12-44); MEAN CORPUSCULAR HEMOGLOBIN 32 pg (25-34); MEAN CORPUSCULAR HGB CONC 35 g/dL (32-36); MEAN CORPUSCULAR VOLUME 93 fL (80-99); MONOCYTES # (AUTO) 0.6 10^3/uL (0.0-1.0); MONOCYTES % (AUTO) 8 % (0-12); NEUTROPHILS # (AUTO) 3.8 10^3/uL (1.8-7.8); NEUTROPHILS % (AUTO) 53 % (42-75); PLATELET COUNT 390 10^3/uL (130-400); WHITE BLOOD COUNT 7.1 10^3/uL (4.3-11.0)
[2022-05-24 11:10] LABS: ALBUMIN 4.1 GM/DL (3.2-4.5); INR 0.9 (0.8-1.4); POTASSIUM 3.9 MMOL/L (3.6-5.0); PROTHROMBIN TIME PATIENT 12.5 SEC (12.2-14.7)
[2022-05-24 11:12] LABS: CALCIUM 8.7 MG/DL (8.5-10.1)
[2022-05-24 11:13] LABS: TOTAL PROTEIN 6.6 GM/DL (6.4-8.2)
--- NOTE | 2022-05-24 11:13 | Diagnostic Imaging Report ---
EXAM: CHEST 1 VIEW, AP/PA ONLY INDICATION: Chest pain. COMPARISON: 03/21/2022. FINDINGS: Normal heart size and central pulmonary vascularity. Lungs are clear. No pleural effusion or pneumothorax. No acute osseous findings. IMPRESSION: Negative chest. Dictated by: Dictated on workstation # [id number]
[2022-05-24 11:15] LABS: BILIRUBIN,TOTAL 0.5 MG/DL (0.1-1.0)
[2022-05-24 11:16] LABS: CREATININE SERUM 0.75 MG/DL (0.60-1.30)
[2022-05-24 11:18] LABS: LIPASE 8 U/L (8-78)
[2022-05-24 11:19] LABS: MAGNESIUM 1.8 MG/DL (1.6-2.4)
[2022-05-24 13:37] VITALS: BP 122/86
== END 2022-05-24 13:38 | disposition home or self-care (01) ==
LOC: EDUNIT# 10:40 → ER 10:42
DX: R07.2 Precordial pain (principal); R10.13 Epigastric pain; I10 Essential (primary) hypertension; Z28.310 Unvaccinated for COVID-19
CPT/HCPCS: 36415; 71045; 80053; 83690; 83735; 83874; 84484; 85025; 85610; 85730; 93005; 93041

== ENCOUNTER 2022-05-28 09:56 | Outpatient (RCR) | payer BC | END 2022-05-29 | disposition home or self-care (01) | PROVIDERS: ATTEND Nurse Practitioner Family | DX: M51.16 Intervertebral disc disorders with radiculopathy, lumbar region (principal); M06.4 Inflammatory polyarthropathy; M32.9 Systemic lupus erythematosus, unspecified ==

== ENCOUNTER 2022-06-28 16:15 | Outpatient (RCR) | payer BC | END 2022-06-29 | disposition home or self-care (01) | PROVIDERS: ATTEND Nurse Practitioner Family | DX: M51.16 Intervertebral disc disorders with radiculopathy, lumbar region (principal); M06.4 Inflammatory polyarthropathy; M32.9 Systemic lupus erythematosus, unspecified ==

== ENCOUNTER 2022-07-25 16:17 | Outpatient (RCR) | payer BC | END 2022-07-29 | disposition home or self-care (01) | PROVIDERS: ATTEND Nurse Practitioner Family | DX: M51.16 Intervertebral disc disorders with radiculopathy, lumbar region (principal); M06.4 Inflammatory polyarthropathy; M32.9 Systemic lupus erythematosus, unspecified; I10 Essential (primary) hypertension ==

== ENCOUNTER 2022-08-23 16:27 | Outpatient (RCR) | payer BC | END 2022-08-29 | disposition home or self-care (01) | PROVIDERS: ATTEND Nurse Practitioner Family | DX: M51.16 Intervertebral disc disorders with radiculopathy, lumbar region (principal); M06.4 Inflammatory polyarthropathy; M32.9 Systemic lupus erythematosus, unspecified ==

== ENCOUNTER → 2022-08-28 | Outpatient (CLI) | payer BC ==
[~2022-08-28] MED LIST changes: +REGADENOSON 0.4 MG/5 ML SYR (LEXISCAN) IV ONE
== END ==
LOC: CARD 14:34
PROVIDERS: ATTEND Internal Medicine Cardiovascular Disease
DX: I10 Essential (primary) hypertension (principal); I25.10 Atherosclerotic heart disease of native coronary artery without angina pectoris
CPT/HCPCS: 93306

== ENCOUNTER → 2022-08-29 | Outpatient (CLI) | payer BC ==
[~2022-08-29] MED LIST changes: +CATHETER FLUSH 10 ML SYR IVP PRN
[2022-08-29 09:08] VITALS: BP 115/79
--- NOTE | 2022-08-29 11:46 | Cardiology Stress Test Report ---
Stress Test Report Date of Procedure/Referring: Date of Procedure: August 29, 2022 PCP Sienna Dickens Aprn Admitting Physician Admitting Physician: Attending Physician: Mitra Marroquin MD Baseline Heart Rate: 55 Baseline Blood Pressure: Blood Pressure Systolic: 115 Blood Pressure Diastolic: 79 Vital Signs Date Time Temp Pulse Resp B/P (MAP) Pulse Ox O2 Delivery O2 Flow Rate FiO2 08/29/22 09:08 55 115/79 (91) Baseline Vital Signs Vital Signs Date Time Temp Pulse Resp B/P (MAP) Pulse Ox O2 Delivery O2 Flow Rate FiO2 08/29/22 09:08 55 115/79 (91) Baseline EKG: Baseline EKG: NSR Summary: After explaining the procedure and details to the patient, she signed the consent and was brought to the stress nuclear laboratory. Patient exercised on standard Fish protocol, EKG, heart rate and blood pressure were monitored continuously, resting and stress doses of radio tracer were injected, imaging was acquired and reviewed in the short axis, horizontal long axis and vertical long axis views Patient was able to exercise for a total of 9.15 minutes on Fish protocol, METs 10.7 Maximum heart rate 130 Maximum blood pressure 127/78 Stress EKG, Minimal nondiagnostic changes Recovery EKG, Return to baseline TID: 1.09 SSS: 2 SDS: 0 EF: 56 Conclusion: Patient was able to exercise for 9 minutes and 15 seconds on standard Fish protocol did not achieve her target heart rate. Test was converted to Lexiscan Myoview stress test No significant EKG changes with exercise and with Lexiscan injection No significant ischemia or infarction noted on SPECT images Normal left ventricular size, ejection fraction 56% MITRA MARROQUIN MD August 29, 2022 11:46
== END ==
LOC: CARD 07:16
PROVIDERS: ATTEND Internal Medicine Cardiovascular Disease
DX: R07.9 Chest pain, unspecified (principal)
CPT/HCPCS: 78452; 93017; A9502

== ENCOUNTER 2022-09-06 16:56 | Outpatient (RCR) | payer BC ==
[~2022-09-06 16:56] MED LIST changes: -CATHETER FLUSH 10 ML SYR IVP PRN; -REGADENOSON 0.4 MG/5 ML SYR (LEXISCAN) IV ONE
== END 2022-09-25 11:23 | disposition home or self-care (01) ==
PROVIDERS: ATTEND Nurse Practitioner Family
DX: M51.16 Intervertebral disc disorders with radiculopathy, lumbar region (principal); M06.4 Inflammatory polyarthropathy; M32.9 Systemic lupus erythematosus, unspecified

== ENCOUNTER → 2022-09-18 | Outpatient (CLI) | payer BC ==
--- NOTE | 2022-09-18 16:55 | Diagnostic Imaging Report ---
Indication: Ankylosing, spondylitis, back pain, lupus. Findings: Frontal and lateral cervical radiographs are performed. There is some degenerative disc space narrowing at C5-C6, no syndesmophytes or endplate bridging. There is leftward convexity curvature at the cervicothoracic junction, I do not know if this anterolisthesis, scoliosis or positional. There is no anterior or posterior listhesis. The prevertebral space normal. Impression: 1. Cervical spondylosis at C5-C6. No acute-appearing abnormality or cervical ankylosis. 2. Leftward convexity cervical thoracic junction curvature may be positional or scoliosis. Dictated by: Dictated on workstation # [id number]
--- NOTE | 2022-09-18 17:14 | Diagnostic Imaging Report ---
INDICATION: Ankylosing spondylosis FINDINGS: There is reciprocal S-type scoliotic curvature convex to the left at the cervicothoracic junction, convex to the right at the mid T-spine level and likely curving to the left in the partially visualized lumbar levels. No segmentation anomaly or dysraphism. On the lateral view, there is some diminished thoracic kyphotic curvature but no listhesis. No acute endplate irregularity. No fracture. IMPRESSION: Reciprocal idiopathic thoracic scoliotic curvature with no acute appearing abnormality. Dictated by: Dictated on workstation # [id number]
--- NOTE | 2022-09-18 17:15 | Diagnostic Imaging Report ---
EXAMINATION: Lumbosacral spine 2 or 3 views HISTORY: Low back pain. COMPARISON: 01/16/2021. FINDINGS: There is no acute fracture or dislocation of the lumbar spine. There is left convexity curvature of the lumbar spine. There is also left lateral subluxation of L3 on L4. No focal osseous lesions. IMPRESSION: 1. No acute fracture or dislocation in the lumbar spine. 2. Left lateral subluxation of L3 on L4 which appears increased compared to the prior exam. Dictated by: Dictated on workstation # [id number]
== END ==
LOC: RAD 14:53
PROVIDERS: ATTEND Nurse Practitioner Family
DX: M51.16 Intervertebral disc disorders with radiculopathy, lumbar region (principal); M41.84 Other forms of scoliosis, thoracic region; M47.22 Other spondylosis with radiculopathy, cervical region; M32.9 Systemic lupus erythematosus, unspecified; M06.4 Inflammatory polyarthropathy
CPT/HCPCS: 72040; 72070; 72100